=== PATIENT | female | born 1940 | race African-American/Black ===

== ENCOUNTER 2020-04-29 21:08 | Inpatient (IN) | payer MEDICARE, SELFPAY ==
--- NOTE | ~2020-04-29 | XR_ITS ---
XR chest 1V portable DATE: 04/29/2020 22:08 INDICATION: Shortness of breath TECHNIQUE: Portable AP chest on 04/30/2020 at 2210 hours COMPARISON: None FINDINGS: There is prominent elevation of the left leaf of the diaphragm. There are patchy bilateral pulmonary infiltrates; differential diagnosis includes pneumonia as well a s pulmonary edema. No pleural effusion is evident. Cardiomegaly. There is pulmonary vascular congesti on and redistribution. Aortic arch calcification. Prominent elevation of left leaf of diaphragm. Diffuse osteopenia. IMPRESSION: Cardiomegaly, pulmonary vascular congestion, bilateral pulmonary infiltrates. Differentia l diagnosis for the bilateral infiltrates includes pulmonary edema, pneumonia Reviewed, dictated and finalized at location A. IMPRESSION: Cardiomegaly, pulmonary vascular congestion, bilateral pulmonary in filtrates. Differential diagnosis for the bilateral infiltrates includes pulmon bibi edema, pneumonia
--- NOTE | ~2020-04-29 | XR_ITS ---
EXAMINATION: XR chest 1V portable DATE: 05/02/2020 09:20 INDICATION: Shortness of breath. TECHNIQUE: A single frontal view of the chest was obtained. COMPARISON: Chest single view 04/29/2020 FINDINGS: Again seen is elevation of left hemidiaphragm. There is mild atelectasis at left lung base. No pleural effusion or pneumothorax. The heart size is normal. IMPRESSION: 1. Persistent elevation of left hemidiaphragm with mild atelectasis at left lung base. Reviewed, dictated and finalized at location A. IMPRESSION: 1. Persistent elevation of left hemidiaphragm with mild atelectasis at left emilee g base.
--- NOTE | ~2020-04-29 | US_ITS ---
EXAMINATION: US renal BI DATE: 04/30/2020 10:11 INDICATION: Renal failure. TECHNIQUE: Multiple ultrasound grayscale images of the kidneys were obtained. COMPARISON: None. FINDINGS: The right kidney measures 10.2 x 5.1 x 4.0 cm. The left kidney measures 10.1 x 4.5 x 5.3 cm. The kidn eys demonstrate normal parenchymal echogenicity. There is no hydronephrosis. The bladder is decompres sed. IMPRESSION: 1. Normal kidneys. No hydronephrosis. Reviewed, dictated and finalized at location A.
[2020-04-29 21:08] VITALS: BP 98/52; PULSE 69; RESP 20; O2SAT 93
--- NOTE | 2020-04-29 21:28 | ECG_ITS ---
Measurements Intervals [place] Rate: 68 P: 104 DC: 149 QRS: 26 QRSD: 95 T: 10 QT: 395 QTc: 422 Interpretive Statements SINUS RHYTHM LOW QRS VOLTAGE IN PRECORDIAL LEADS BORDERLINE ECG Electronically Signed On 04-30-2020 7:10:40 CDT by Edd Echavarria D.O.
[2020-04-29 21:30] VITALS: PULSE 68; O2SAT 95
[2020-04-29 21:37] LABS: Alveolar/Arterial O2 Gradient 47.7 mmHg; Base Excess ABG -9.9 mEq/l (+/-2.0); Fractional Inspired Oxygen 21 %; HCO3 ABG 14.8 mEq/l (22.0-26.0); Modified Allen's Test Pass; Oxygen Content ABG 14.7 %vol (16.0-22.0); Oxygen Saturation ABG 92.2 % (95.0-100.0); Oxyhemoglobin 90.9 % THb (90.0-100.0); PCO2 ABG 29.3 mmHg (35.0-45.0); PO2 ABG 66.9 mmHg (80.0-100.0); PO2 FiO2 Ratio Arterial Blood 3.19 %; Site Drawn RIGHT RADIAL; Total Hemoglobin 11.5 g/dL (12.0-18.0); pH ABG 7.322 (7.350-7.450)
[2020-04-29 21:38] LABS: Device ROOM AIR
[2020-04-29 21:38] LABS: Basophils Absolute Auto 0.1 K/mm3 (0.0-0.1); Basophils Percent Auto 0.3 % (0.2-1.2); Eosinophils Absolute Auto 11.3 K/mm3 (0-0.3); Eosinophils Percent Auto 31.6 % (0-4.4); Hematocrit 32.9 % (37.0-47.0); Hemoglobin 10.4 g/dL (12.0-15.0); Immature Granulocyte Absolute 1.59 K/mm3 (0.00-0.031); Immature Granulocyte Percent A 4.4 % (0-0.5); Lymphocytes Percent Auto 11.5 % (18.3-44.2); Mean Corpuscular HGB Conc 31.6 g/dl (32-36); Mean Corpuscular Volume 91.6 fl (80-100); Mean Platelet Volume 11.7 fl (7.4-10.4); Monocytes Absolute Auto 4.2 K/mm3 (0.1-0.6); Monocytes Percent Auto 11.6 % (2.6-8.5); Neutrophils Absolute Auto 14.6 K/mm3 (1.3-6.7); Neutrophils Percent Auto 40.6 % (45.5-73.1); Nucleated Red Blood Cells Absolute Auto 0.4 K/mm3 (0.0-0.012); Nucleated Red Blood Cells Perc 1.2 % (0.0-0.2); Platelet Count Result 229 k/mm3 (150-375); Red Blood Count 3.59 M/mm3 (4.2-5.4); Red Cell Distribution Width 16.1 % (11.5-14.5); White Blood Count 35.8 K/mm3 (4.5-10.0)
[2020-04-29 21:47] LABS: INR 1.3
[2020-04-29 21:48] LABS: Burr Cells 1+ (NORMAL); Partial Thromboplastin Time 33.6 SECONDS (22.3-36.8); Platelet Estimate Adequate (Adequate); Polychromasia 1+ (NORMAL)
[2020-04-29 21:50] LABS: Lactic Acid Reflex 1.4 mmol/L (0.7-2.1)
[2020-04-29 21:51] LABS: Alanine Aminotransferase 92 U/L (4-35); Albumin Level 2.7 g/dL (3.5-5.1); Alkaline Phosphatase 127 U/L (38-126); Anion Gap 7 mmol/L (8-16); Aspartate Amino Transferase 65 U/L (14-36); Bilirubin,Total 0.5 mg/dL (0.2-1.3); Blood Urea Nitrogen 52 mg/dL (7-17); Calcium 8.4 mg/dL (8.4-10.2); Carbon Dioxide 20 mmol/L (22-30); Chloride 111 mmol/L (98-107); Estimated CRCL calculation 19 ml/min; Estimated Glomerular Filt Rate 15; Glucose 143 mg/dL (65-105); Magnesium 2.2 mg/dL (1.6-2.3); Potassium 3.9 mmol/L (3.4-5.0); Sodium 138 mmol/L (137-145)
[2020-04-29 22:03] LABS: NT Pro B Type Natriuretic Pept 6110 PG/ML (5-100); Troponin I 0.027 ng/mL (0.000-0.034)
--- NOTE | 2020-04-29 22:52 | ED.GENADULT ---
HPI - General Adult General Chief complaint: Shortness of Breath/Dyspnea Stated complaint: sob Time Seen by Provider: 04/29/20 21:18 History of Present Illness HPI narrative: Patient 79-year-old female who presents the emergency department chief complaint of shortness of breath. Patient reports she was recently admitted at [facility] and treated for urinary tract infection patient was discharged and noticed over the last several days she has been having increasing shortness of breath it is worse whenever she tries to ambulate and whenever she tries to lay flat. Patient reports she has had some swelling in her lower extremities reports that she does not know if she has any history of underlying lung problems. Related Data Home Medications Medication Instructions Recorded Confirmed allopurinol 04/29/20 amlodipine 04/29/20 atenolol 04/29/20 atorvastatin 04/29/20 cefdinir mg 04/29/20 furosemide 04/29/20 isosorbide mononitrate mg PO 04/29/20 losartan 04/29/20 metronidazole 04/29/20 triamcinolone acetonide TOPICAL 04/29/20 Review of Systems Review of Systems: Narrative: A 10 system review of systems was completed on the patient and is negative except for what is stated in the HPI. Nursing and ancillary documentation was reviewed. PMFSH Comments History of hypertension recent UTI Social history patient denies smoking or illicit drug use Exam Narrative: Exam Narrative: GENERAL: Well-appearing, well-nourished, and in no acute distress. HEAD: Normocephalic, atraumatic. EYES: PERRLA and EOMI. ENT: Nares clear, no rhinorrhea or epistaxis. Mucous membranes moist. NECK: Supple. CHEST: Clear to auscultation. No respiratory distress. HEART: Regular rate and rhythm. No murmur heard. Normal peripheral pulses. ABDOMEN: Soft, nontender, nondistended, normal active bowel sounds. EXTREMITIES: Normal range of motion. +2 edema. SKIN: Warm, dry, no rash. NEURO: No focal deficits. Alert and oriented x3. PSYCH: Normal mood and affect. Course Vital Signs Vital signs: Vital Signs Pulse Rate 69 04/29/20 21:08 Respiratory Rate 20 04/29/20 21:08 Blood Pressure 98/52 L 04/29/20 21:08 Pulse Oximetry 93 04/29/20 21:08 Pulse Rate 69 04/29/20 21:08 Respiratory Rate 20 04/29/20 21:08 Blood Pressure 98/52 L 04/29/20 21:08 Pulse Oximetry 93 04/29/20 21:08 Medical Decision Making Vital Signs Vital Signs: Vital Signs Pulse Rate 69 04/29/20 21:08 Respiratory Rate 20 04/29/20 21:08 Blood Pressure 98/52 L 04/29/20 21:08 Pulse Oximetry 93 04/29/20 21:08 Pulse Rate 69 04/29/20 21:08 Respiratory Rate 20 04/29/20 21:08 Blood Pressure 98/52 L 04/29/20 21:08 Pulse Oximetry 93 04/29/20 21:08 Lab Data Result diagrams: 04/29/20 21:32 04/29/20 21:32 Labs: Lab Results 04/29/20 04/29/20 04/29/20 Range/Units 21:32 21:32 21:32 WBC 35.8 H (4.5-10.0) K/mm3 RBC 3.59 L (4.2-5.4) M/mm3 Hgb 10.4 L (12.0-15.0) g/dL Hct 32.9 L (37.0-47.0) % MCV 91.6 (80-100) fl MCH 29.0 (26-34) pg MCHC 31.6 L (32-36) g/dl RDW 16.1 H (11.5-14.5) % Plt Count 229 (150-375) k/mm3 MPV 11.7 H (7.4-10.4) fl Immature Gran % (Auto) 4.4 H (0-0.5) % Neut % (Auto) 40.6 L (45.5-73.1) % Lymph % (Auto) 11.5 L (18.3-44.2) % [place] % (Auto) 11.6 H (2.6-8.5) % Eos % (Auto) 31.6 H (0-4.4) % Baso % (Auto) 0.3 (0.2-1.2) % Lymph # (Auto) 4.10 H (0.9-3.2) K/mm3 [place] # (Auto) 4.2 H (0.1-0.6) K/mm3 Eos # (Auto) 11.3 H (0-0.3) K/mm3 Baso # (Auto) 0.1 (0.0-0.1) K/mm3 Abs Immat Gran (auto) 1.59 H (0.00-0.031) K/mm3 Absolute Neuts (auto) 14.6 H (1.3-6.7) K/mm3 Absolute Nucleated RBC 0.4 H (0.0-0.012) K/mm3 Nucleated RBC % 1.2 H (0.0-0.2) % Platelet Estimate Adequate (Adequate) Polychromasia 1+ (NORMAL) Favio Cells 1+ (NORMAL) PT 17.0 H
[2020-04-29] MEDS: FUROSEMIDE INJ 40 MG/4 ML VIAL IV PUSH (23:00)
--- NOTE | 2020-04-29 23:28 | PC.NURSE ---
Pt placed on o2 at 2L/nc per order of Dr. Sharp. States that the patient c/o shortness of breath and pulse oximetry at 89%. Initial contact with patient, pt spo2 94-95% on room air. o2 connected at 2L/NC. Pt states that doctor told me to put some oxygen on . Stephanie RN made aware.
[2020-04-29 23:31] VITALS: BP 110/66; PULSE 66; RESP 19; O2SAT 98
[2020-04-30] VITALS (24 sets, daily range): BP systolic 92–130; BP diastolic 35–67; PULSE 67–84; RESP 16–23; TEMP 36.1–36.7; O2SAT 85–100; BMI 40.8; BMI 40.9
--- NOTE | 2020-04-30 00:20 | PC.NURSE ---
UNABLE TO OBTAIN BLOOD CULTURES AFTER 5 ATTEMPTS BY THIS RN, CLOUD INFRASTRUCTURE ARCHITECT AND PHLEBOTOMY. WILL HAVE MARI Sagastume ULTRASOUND RN ATTEMPT
[2020-04-30 01:05] LABS: Add Urine Microscopic? YES; Appearance Urine Cloudy (Clear); Bacteria Urine Trace /hpf; Bilirubin Urine 1+ (Negative); Blood Urine Negative (Negative); Color Urine Amber (Yellow); Glucose Urine UA 1+ mg/dL (Negative); Ketones Urine Trace mg/dL (Negative); Leukocyte Esterase Ur 2+ LEU/UL (Negative); Mucus Urine Rare /lpf; Nitrate Urine Negative (Negative); Protein Urine 2+ mg/dL (Negative); Specific Grav Ur 1.024 (1.001-1.035); Squamous Epithelial Cell Urine Few /hpf (Few); Urobilinogen Urine Negative mg/dL (<2.0); WBC Urine 21-30 /hpf
[2020-04-30] MEDS: ALBUTEROL SULFATE NEB 2.5 MG/0.5 ML INH 5 MG INHALATION ×4 (01:12→21:21)
[2020-04-30] MEDS: IPRATROPIUM BR 0.02% INH SOLN 0.5 MG/2.5 ML VIAL INHALATION ×4 (01:12→21:21)
--- NOTE | 2020-04-30 02:19 | ADMGEN ---
This patient, Lizbeth Yang, was admitted to IMU Room 203-01. Patient/family oriented to hospital policies and general routines including ID bracelet, bed and alarms, visiting hours, pain management, procedures, bathroom and other care routines, personal items, smoking policy, room service/diet, and visiting hours. Information on how to activate the Rapid Response Team has been discussed. Patient/Family are encouraged to report perceived risks to care and to ask questions if they do not understand what they are told or what they should do. Cat RN report arrived approx [id number]
--- NOTE | 2020-04-30 02:38 | PM.IMHP ---
H&P: HPI History of Present Illness Date/Time: 04/30/20 02:38 Chief Complaint: exertional shortness of breath Narrative: This is a 79-year-old female with known history of hypertension, hyperlipidemia, and arthritis who presented to the hospital with a complaint of shortness of breath. The patient was just discharged from [facility] were she was treated for a UTI as well as colitis according to the patient. She has had worsening exertional shortness of breath over the past few days and tonight she was found to be desaturating by EMS. The patient does not have any past medical history of chronic lung disease or congestive heart failure. She denies any history of coronary artery disease. On further questioning she also denies any recent fevers, chills, cough, sore throat, abdominal pain, dysuria, hematuria, nausea, vomiting, diarrhea, or worsening lower extremity swelling. The patient does admit to having mild chronic lower extremity swelling. The patient was found to be septic tonight in the emergency room with a respiratory rate in the 20s as well as a leukocytosis of 35,800. Chest x-ray was obtained in the emergency room which demonstrated bilateral pulmonary edema. The patient was treated with IV Lasix in the ER tonight. As well as empiric antibiotics for possible pneumonia. ABG was obtained which demonstrated hypoxemia. Urinalysis was obtained and was also abnormal. We been asked to admit the patient to hospital for further care. She has no other complaints at this time. Review of Systems Review of Systems: All systems reviewed & are unremarkable except as noted in HPI and below PMFSH Past Medical History Medical History (Updated 04/30/20 @ 02:55 by Ciro Sharp MD) Essential hypertension Hyperlipidemia Family History Family History (Updated 04/30/20 @ 02:10 by Bri Cloud RN) Sibling Asthma Social History Social History Smoking packs per day: 0.5 Smoking cigarettes per day: 10.0 Years smoked: 12 Smoking pack-years: 6.00 Smoking status: Former smoker Tobacco type: cigarettes Alcohol intake: never Substance use: never Substance use type: does not use Gender identity (if verbalized by the patient): Female Spiritual care concerns: No Comments Past surgical history is reviewed and unremarkable. Meds Home Medications and Allergies Home Medications Medication Instructions Recorded Confirmed Type allopurinol 100 mg PO DAILY 04/29/20 04/30/20 History amlodipine 10 mg PO DAILY 04/29/20 04/30/20 History atenolol 50 mg PO BID 04/29/20 04/30/20 History atorvastatin 40 mg PO DAILY 04/29/20 04/30/20 History cefdinir 300 mg PO BID 04/29/20 04/30/20 History furosemide 40 mg PO DAILY 04/29/20 04/30/20 History isosorbide mononitrate 60 mg PO DAILY 04/29/20 04/30/20 History losartan 100 mg PO DAILY 04/29/20 04/30/20 History metronidazole 500 mg PO TID 04/29/20 04/30/20 History triamcinolone acetonide 0.1 applic TOPICAL PRN PRN 04/29/20 04/30/20 History Allergies Allergy/AdvReac Type Severity Reaction Status Date / Time No Known Allergies Allergy Verified 04/29/20 23:15 Vital Signs Vital Signs - 24 hr 04/29/20 21:08 04/29/20 21:30 04/29/20 23:31 Temperature Pulse Rate 69 68 66 Respiratory Rate 20 19 Blood Pressure 98/52 L 110/66 Pulse Oximetry 93 95 98 04/30/20 00:36 04/30/20 01:05 04/30/20 01:10 Temperature Pulse Rate 72 69 67 Respiratory Rate 23 H 22 H 16 Blood Pressure 115/47 L 107/55 L 128/67 Pulse Oximetry 97 97 04/30/20 01:12 04/30/20 01:45 04/30/20 02:00 Temperature 36.4 C Pulse Rate 68 74 73 Respiratory Rate 20 23 H Blood Pressure 112/51 L Pulse Oximetry 97 Exam Const: General: cooperative, alert, awake and ill appearing chronically Nutritional Appearance: obese morbidly obese Orientation/consciousness: patient oriented x3 HENMT: Head: normal to inspection General nose exam: Normal external nose pre
[2020-04-30] MEDS: metroNIDAZOLE 250 MG TABLET 500 MG PO ×3 (05:16→20:32)
[2020-04-30 08:11] LABS: Thyroid Stimulating Hormone Reflex 0.651 uIU/mL (0.465-4.68)
[2020-04-30 08:51] LABS: Hematocrit 32.9 % (37.0-47.0); Hemoglobin 10.5 g/dL (12.0-15.0); Mean Corpuscular HGB Conc 31.9 g/dl (32-36); Mean Corpuscular Hemoglobin 29.4 pg (26-34); Mean Corpuscular Volume 92.2 fl (80-100); Mean Platelet Volume 12.4 fl (7.4-10.4); Platelet Count Result 190 k/mm3 (150-375); Red Blood Count 3.57 M/mm3 (4.2-5.4); Red Cell Distribution Width 16.3 % (11.5-14.5)
[2020-04-30] MEDS: ATORVASTATIN 40 MG TABLET PO (08:58)
[2020-04-30] MEDS: ENOXAPARIN 30 MG/0.3 ML SYRINGE SUB-Q (08:58)
[2020-04-30] MEDS: FUROSEMIDE INJ 40 MG/4 ML VIAL IV PUSH ×2 (08:58→20:32)
[2020-04-30 09:03] LABS: Anion Gap 7 mmol/L (8-16); Blood Urea Nitrogen 56 mg/dL (7-17); Calcium 8.3 mg/dL (8.4-10.2); Carbon Dioxide 20 mmol/L (22-30); Chloride 111 mmol/L (98-107); Estimated CRCL calculation 20 ml/min; Estimated Glomerular Filt Rate 18; Glucose 122 mg/dL (65-105); Potassium 4.6 mmol/L (3.4-5.0); Sodium 138 mmol/L (137-145)
--- NOTE | 2020-04-30 14:47 | PM.IMPN ---
Progress Note: A&P Assessment and Plan (1) Acute hypoxemic respiratory failure: Code(s): J96.01 - Acute respiratory failure with hypoxia Status: Acute Assessment and Plan: Appears to be secondary to acute heart failure exacerbation with pulmonary edema on chest x-ray and elevated BNP. The patient does appear to have peripheral edema. We will continue IV Lasix therapy. Monitor eyes and nose. Check TSH reflex T4. Sodium prudent fluid restricted diet. Check echocardiogram in a.m.. CHF teaching. Supplemental oxygen as needed. Continuous pulse oximetry. Bronchodilators as needed. RT assess and treat. 04/30/20 14:47 patient is 79-year-old female with significant cardiac or pulmonary history presented emergency department with a complaint of shortness of breath lower extremity edema chest x-ray showed cardiomegaly, pulmonary vascular congestion, bilateral pulmonary infiltrates. Differential diagnosis for the bilateral infiltrates includes pulmonary edema, pneumonia, most likely patient symptoms are secondary to exacerbation of congestive heart failure etiology uncertain cardiac echo is pending, is being diuresed with IV Lasix b.i.d. will continue to monitor, also upon arrival patient white counts elevated to 36,000 concerning sepsis with elevated white count and pneumonia as well as UTI, patient is being treated with Rocephin and azithromycin will continue to monitor, also patient BUN and creatinine is elevated 52/3.10 pre renal secondary dehydration patient is being diurese, patient renal ultrasound is normal, patient may be 3rd spacing. will closely monitor patient kidney function if there is no improvement will consult welder helper further recommendation. There is a suspicion patient may be positive for COVID-19 being tested an isolated. (2) Congestive heart failure: Qualifiers: Heart failure chronicity: acute Heart failure type: unspecified Qualified Code(s): I50.9 - Heart failure, unspecified Code(s): I50.9 - Heart failure, unspecified Status: Acute Assessment and Plan: Rule out acute congestive heart failure exacerbation with evidence of fluid overload. Monitor fluid status closely. Continue IV diuretics. Echocardiogram is pending. (3) Urinary tract infection: Qualifiers: Urinary tract infection type: site unspecified Hematuria presence: without hematuria Qualified Code(s): N39.0 - Urinary tract infection, site not specified Code(s): N39.0 - Urinary tract infection, site not specified Status: Acute Assessment and Plan: Continue antibiotics for same. Urine cultures pending. (4) Sepsis: Qualifiers: Sepsis type: sepsis due to unspecified organism Sepsis acute organ dysfunction status: with acute organ dysfunction Severe sepsis acute organ dysfunction type: acute respiratory failure Acute respiratory failure type: with hypoxia Severe sepsis shock status: without septic shock Qualified Code(s): A41.9 - Sepsis, unspecified organism; R65.20 - Severe sepsis without septic shock; J96.01 - Acute respiratory failure with hypoxia Code(s): A41.9 - Sepsis, unspecified organism Status: Acute Assessment and Plan: Source of sepsis appears to be urinary at this time. Will continue antibiotic therapy. Urine and blood cultures are pending. Check sputum culture. Monitor vital signs and urine output. (5) Transaminitis: Code(s): R74.01 - Elevation of levels of liver transaminase levels Status: Acute Assessment and Plan: Mild transaminitis may be secondary to fatty liver disease versus hypoperfusion from acute heart failure exacerbation. Monitor liver function test. Consider right upper quadrant ultrasound in outpatient setting. (6) Suspected 2019 novel coronavirus infection: Code(s): Z20.822 - Contact with and (suspected) exposure to COVID-19 Status: Acute Assessment and Plan: Patient
[2020-04-30] MEDS: ACETAMINOPHEN 325 MG TABLET 650 MG PO (17:01)
[2020-04-30 18:33] LABS: SARS-CoV-2 RNA PCR Negative
[2020-05-01] VITALS (25 sets, daily range): BP systolic 90–129; BP diastolic 47–87; PULSE 76–118; RESP 16–20; TEMP 35.8–36.9; O2SAT 93–99
[2020-05-01] MEDS: IPRATROPIUM BR 0.02% INH SOLN 0.5 MG/2.5 ML VIAL INHALATION ×4 (02:04→20:45)
[2020-05-01] MEDS: ALBUTEROL SULFATE NEB 2.5 MG/0.5 ML INH 5 MG INHALATION ×4 (02:05→20:44)
--- NOTE | 2020-05-01 02:56 | ECHO_ITS ---
Patient Info Name: Lizbeth Yang Age: 79 years : 1940 Gender: Female Ht: 68 in Wt: 269 lbs BSA: 2.48 m2 HR: 85 bpm BP: 90 / 52 mmHg Heart Rhythm: Atrial Fibrillation Technical Quality: Good Exam Date: 05/01/2020 2:41 PM Exam Location: [facility] Patient Status: Inpatient Admit Date: 04/29/2020 Staff Ordering Physician: Ciro Sharp MD Dairy Husbandry Worker: Rudolph Dillon RDCS, RT Attending Provider: Ciro Sharp MD Referring Physician: Lila ARCHER; Exam Type: CA echo doppler color flow Study Info Indications I50.9 - Heart failure, unspecified Complete two-dimensional, color flow and Doppler transthoracic echocardiogram is performed. Summary 1. Complete two-dimensional, color flow and Doppler transthoracic echocardiogram is performed. 2. Left ventricular systolic function is hyperdynamic, estimated at >70%. 3. There is mildly increased left ventricular wall thickness. 4. Right atrial chamber dimension is mildly enlarged. 5. There is no aortic valve stenosis. 6. There is trace mitral valve regurgitation. 7. Unable to estimate PA systolic pressure due to poor spectral resolution of tricuspid regurgitant jet velocity. Left Ventricle Left ventricular chamber dimension is normal. Left ventricular systolic function is hyperdynamic, estimated at >70%. There is mildly increased left ventricular wall thickness. The left ventricular diastolic function is indeterminate. Right Ventricle Right ventricular chamber dimension is normal. Right ventricular systolic function is normal. Left Atria Left atrial chamber dimension is normal. Right Atria Right atrial chamber dimension is mildly enlarged. Aortic Valve The aortic valve is not well visualized. There is no aortic valve stenosis. There is no aortic valve regurgitation. There is mild aortic valve calcification. Pulmonic Valve The pulmonic valve is not well visualized. Mitral Valve The mitral valve has normal leaflets. There is trace mitral valve regurgitation. The mitral valve annulus is moderately calcified. Tricuspid Valve The tricuspid valve leaflets are normal. There is trace tricuspid valve regurgitation. Unable to estimate PA systolic pressure due to poor spectral resolution of tricuspid regurgitant jet velocity. Pericardium/Pleural The pericardium appears normal. There is trivial pericardial effusion. Inferior Vena Cava Normal inferior vena cava with >50% collapse upon inspiration consistent with normal right atrial pressure, 5 mmHg. Aorta The aortic root size at the sinus of Valsalva is normal. There is mild aortic atherosclerosis. Left Ventricular Outflow Tract Name Value Normal LVOT 2D LVOT Diameter 2.1 cm LVOT Doppler LVOT Peak Gradient 7 mmHg LVOT Mean Gradient 3 mmHg LVOT VTI 18 cm LVOT VTI/AV VTI Ratio 0.7 LVOT Stroke Volume 63 ml LVOT CO 7.9 l/min LVOT CI 3.2 l/min/m2 M
[2020-05-01] MEDS: metroNIDAZOLE 250 MG TABLET 500 MG PO ×2 (06:30→14:16)
[2020-05-01] MEDS: ENOXAPARIN 30 MG/0.3 ML SYRINGE SUB-Q (08:15)
[2020-05-01] MEDS: FUROSEMIDE INJ 40 MG/4 ML VIAL IV PUSH ×2 (08:16→20:39)
[2020-05-01] MEDS: ATORVASTATIN 40 MG TABLET PO (08:16)
[2020-05-01 08:32] LABS: Hematocrit 35.5 % (37.0-47.0); Mean Corpuscular Hemoglobin 28.8 pg (26-34); Mean Corpuscular Volume 92.9 fl (80-100); Mean Platelet Volume 11.6 fl (7.4-10.4); Platelet Count Result 201 k/mm3 (150-375); Red Blood Count 3.82 M/mm3 (4.2-5.4); White Blood Count 38.6 K/mm3 (4.5-10.0)
[2020-05-01 08:44] LABS: Albumin Level 2.7 g/dL (3.5-5.1); Anion Gap 6 mmol/L (8-16); Blood Urea Nitrogen 59 mg/dL (7-17); Calcium 8.3 mg/dL (8.4-10.2); Carbon Dioxide 22 mmol/L (22-30); Chloride 109 mmol/L (98-107); Estimated CRCL calculation 20 ml/min; Estimated Glomerular Filt Rate 19; Glucose 96 mg/dL (65-105); Phosphorus 2.8 mg/dL (2.5-4.5); Potassium 4.6 mmol/L (3.4-5.0); Sodium 137 mmol/L (137-145)
[2020-05-01 09:10] LABS: Band Neutrophils Percent 3 % (0-6); Eosinophils Absolute Manual 17.37 K/mm3 (0.02-0.5); Eosinophils Percent Manual 45 % (0-4); Lymphocytes Absolute Manual 7.72 K/mm3 (1.1-4.5); Monocytes Absolute Manual 0.38 K/mm3 (0.1-0.90); Monocytes Percent Manual 1 % (3-9); Neutrophils Absolute Manual 13.12 K/mm3 (1.7-7.2); Neutrophils Percent Manual 31 % (46-73); Nucleated Red Blood Cells 1 %; Total Cells Counted 100
[2020-05-01 09:11] LABS: Anisocytosis 1+ (NORMAL); Platelet Estimate Adequate (Adequate)
[2020-05-01 09:12] LABS: Ovalocytes 1+ (NORMAL); Polychromasia 1+ (NORMAL); Smudge Cells MODERATE
--- NOTE | 2020-05-01 13:06 | PM.IMPN ---
Progress Note: A&P Assessment and Plan (1) Acute hypoxemic respiratory failure: Code(s): J96.01 - Acute respiratory failure with hypoxia Status: Acute Assessment and Plan: Appears to be secondary to acute heart failure exacerbation with pulmonary edema on chest x-ray and elevated BNP. The patient does appear to have peripheral edema. We will continue IV Lasix therapy. Monitor eyes and nose. Check TSH reflex T4. Sodium prudent fluid restricted diet. Check echocardiogram in a.m.. CHF teaching. Supplemental oxygen as needed. Continuous pulse oximetry. Bronchodilators as needed. RT assess and treat. 05/01/20 13:07 04/30 patient is 79-year-old female with significant cardiac or pulmonary history presented emergency department with a complaint of shortness of breath lower extremity edema chest x-ray showed cardiomegaly, pulmonary vascular congestion, bilateral pulmonary infiltrates. Differential diagnosis for the bilateral infiltrates includes pulmonary edema, pneumonia, most likely patient symptoms are secondary to exacerbation of congestive heart failure etiology uncertain cardiac echo is pending, is being diuresed with IV Lasix b.i.d. will continue to monitor, also upon arrival patient white counts elevated to 36,000 concerning sepsis with elevated white count and pneumonia as well as UTI, patient is being treated with Rocephin and azithromycin will continue to monitor, also patient BUN and creatinine is elevated 52/3.10 pre renal secondary dehydration patient is being diurese, patient renal ultrasound is normal, patient may be 3rd spacing. will closely monitor patient kidney function if there is no improvement will consult film crew member further recommendation. There is a suspicion patient may be positive for COVID-19 being tested an isolated. 05/01 patient COVID test is negative and off isolation, today patient states feeling little better not as short of breath however patient urine output is poor a kidney function is not improving, will consult Nephrology for further recommendation, cardiac echo is pending White counts remain elevated urine and blood cultures are pending, most likely secondary to pneumonia patient is being treated with Rocephin azithromycin will continue to monitor, will have a PT OT evaluate the patient and further recommendation to follow (2) Congestive heart failure: Qualifiers: Heart failure chronicity: acute Heart failure type: unspecified Qualified Code(s): I50.9 - Heart failure, unspecified Code(s): I50.9 - Heart failure, unspecified Status: Acute Assessment and Plan: Rule out acute congestive heart failure exacerbation with evidence of fluid overload. Monitor fluid status closely. Continue IV diuretics. Echocardiogram is pending. (3) Urinary tract infection: Qualifiers: Urinary tract infection type: site unspecified Hematuria presence: without hematuria Qualified Code(s): N39.0 - Urinary tract infection, site not specified Code(s): N39.0 - Urinary tract infection, site not specified Status: Acute Assessment and Plan: Continue antibiotics for same. Urine cultures pending. (4) Sepsis: Qualifiers: Sepsis type: sepsis due to unspecified organism Sepsis acute organ dysfunction status: with acute organ dysfunction Severe sepsis acute organ dysfunction type: acute respiratory failure Acute respiratory failure type: with hypoxia Severe sepsis shock status: without septic shock Qualified Code(s): A41.9 - Sepsis, unspecified organism; R65.20 - Severe sepsis without septic shock; J96.01 - Acute respiratory failure with hypoxia Code(s): A41.9 - Sepsis, unspecified organism Status: Acute Assessment and Plan: Source of sepsis appears to be urinary at this time. Will continue antibiotic therapy. Urine and blood cultures are pending. Check sputum culture. Monitor vital signs and urine output. (5) Tr
--- NOTE | 2020-05-01 15:58 | ECG_ITS ---
Measurements Intervals [place] Rate: 122 P: NM: 0 QRS: 18 QRSD: 88 T: -5 QT: 300 QTc: 428 Interpretive Statements ATRIAL FIBRILLATION WITH RAPID VENTRICULAR RESPONSE ABNORMAL ECG Electronically Signed On 05-01-2020 20:12:44 CDT by Edd Echavarria D.O.
[2020-05-01] MEDS: METOPROLOL TARTRATE INJ 5 MG/5 ML VIAL IV PUSH (16:51)
--- NOTE | 2020-05-01 17:25 | PM.PNNEP ---
Subjective Date/time seen: 05/01/20 17:25 Interval history: Lizbeth is a very pleasant 79-year-old lady who has multiple medical problems including hypertension, arthritis, hyperlipidemia. The patient was recently in [facility] in [facility] for shortness of breath. She was treated and discharged. In over the next few days after discharge he became short of breath again so came over to the emergency room at [facility] and was admitted. Chest x-ray showed fluid and possible pneumonia. She has been given diuretics and antibiotics. She says she feels better now. Her creatinine was at elevated on admission and has not improved so renal consultation was requested. She denies any bloody urine, foamy urine, kidney stones, or painful urination. She does not take any nonsteroidal anti-inflammatory agents. She does not see a kidney doctor as an outpatient. She has not had any changes in her medication at home but she is not what sure what she got in [facility]. Upon admission she was diagnosed with acute respiratory failure. This is felt to have a component of volume overload and possible congestive heart failure. She also had evidence of pneumonia so she was given antibiotics. She also had a bladder infection and was given antibiotics for this as well. Review of Systems Cardiovascular: Cardiovascular: Reports no additional cardiovascular complaints Respiratory: Respiratory: Reports no additional respiratory complaints Gastrointestinal: Gastrointestinal: Reports no additional gastrointestinal complaints Genitourinary: Genitourinary: Reports no additional female genitourinary complaints Exam Narrative: Exam Narrative: WDWN in NAD skin no rash head ncat lungs clear cor reg no rub abd BS+ nontender and soft ext no edema. Objective Data Vital Signs Vital Signs: Vital Signs - 24 hr 04/30/20 18:00 04/30/20 18:53 04/30/20 20:00 Temperature 36.5 C Pulse Rate 74 73 71 Respiratory Rate 20 Blood Pressure 97/35 L Pulse Oximetry 97 94 04/30/20 21:21 04/30/20 21:30 04/30/20 22:00 Temperature Pulse Rate 67 69 73 Respiratory Rate 20 20 Blood Pressure Pulse Oximetry 05/01/20 00:00 05/01/20 02:00 05/01/20 02:06 Temperature 36.6 C Pulse Rate 78 82 78 Respiratory Rate 18 18 Blood Pressure 98/47 L Pulse Oximetry 93 05/01/20 02:16 05/01/20 04:00 05/01/20 06:00 Temperature 36.9 C Pulse Rate 80 85 84 Respiratory Rate 18 18 Blood Pressure 129/71 Pulse Oximetry 96 05/01/20 07:54 05/01/20 08:00 05/01/20 08:53 Temperature 36.6 C Pulse Rate 81 81 80 Respiratory Rate 18 18 18 Blood Pressure 124/53 L Pulse Oximetry 95 95 05/01/20 09:01 05/01/20 10:00 05/01/20 12:00 Temperature 36.7 C Pulse Rate 80 83 87 Respiratory Rate 18 18 Blood Pressure 90/52 L Pulse Oximetry 99 05/01/20 13:54 05/01/20 14:00 05/01/20 14:07 Temperature Pulse Rate 84 88 84 Respiratory Rate 18 18 Blood Pressure Pulse Oximetry 05/01/20 16:00 05/01/20 16:51 Temperature 36.6 C Pulse Rate 118 H 112 H Respiratory Rate 20 Blood Pressure 126/87 Pulse Oximetry 93 Intake/Output Intake/Output: Intake & Output 04/28/20 04/29/20 04/30/20 05/01/20 23:59 23:59 23:59 23:59 Intake Total 50 300 Output Total 100 150 Balance -100 -100 300 Meds/Results Medications: Active Medications Generic Name Dose Route Start Last Admin Trade Name Jessi PRN Reason Stop Dose Admin Acetaminophen 650 mg 04/29/20 22:50 04/30/20 17:01 Acetaminophen 325 Mg Tablet PO 650 mg Q4H PRN Administration Mild Pain (1-3) or Fever Albuterol 5 mg 04/30/20 02:00 05/01/20 13:53 Albuterol Sulfate Neb 2.5 Mg/0.5 Ml Inh INHALATION 5 mg Q6HRT JASON Administration Allopurinol 100 mg 05/02/20 09:00 Allopurinol 100 Mg Tablet PO DAILY [facility] Amlodipine Besylate 10 mg 05/02/20 09:00 Amlodipine Besylate 5 Mg Table
--- NOTE | 2020-05-01 17:32 | PM.CNNEP ---
Assessment and Plan Assessment and plan (1) Acute renal failure: Qualifiers: Acute renal failure type: unspecified Qualified Code(s): N17.9 - Acute kidney failure, unspecified Code(s): N17.9 - Acute kidney failure, unspecified Status: Acute Assessment and Plan: Lizbeth has acute kidney injury. It is unclear if she has underlying chronic disease or not. Her renal ultrasound shows normal kidneys. She does not see a kidney doctor as an outpatient and has never been told she had kidney problems, all of which speak against her having CKD. She does have chronic hypertension however and hyperlipidemia so is at risk for at least some chronic kidney disease. Acute kidney injury can be caused by pneumonia. She is getting antibiotics for this. She also had a bladder infection and signs of sepsis so could have injury of of the kidneys because of these. Her white cell count is still high. Her blood pressure was somewhat low last night and she could have some dysautoregulation. we will get urine electrolytes and eosinophils. I will back off on her blood pressure meds to let her blood pressure run between 120 and 140. We will follow along. (2) Metabolic acidosis: Code(s): E87.2 - Acidosis Status: Acute Assessment and Plan: Her bicarbonate level is a little bit better. She is getting diuretics would which would tend to make this CO2 rise so I will not give her bicarbonate supplements currently. (3) Acute hypoxemic respiratory failure: Code(s): J96.01 - Acute respiratory failure with hypoxia Status: Acute Assessment and Plan: The patient has volume overload on her chest x-ray. She is getting diuretics for this and feels better. Her echocardiogram does not look all that bad. So it does not look like she has primary congestive heart failure. She possibly could have pneumonia as well. She is getting antibiotics for this. (4) Urinary tract infection: Qualifiers: Hematuria presence: without hematuria Urinary tract infection type: site unspecified Qualified Code(s): N39.0 - Urinary tract infection, site not specified Code(s): N39.0 - Urinary tract infection, site not specified Status: Acute Assessment and Plan: Her urinalysis showed a few red cells and a few white cells. Culture is negative. She was on cefdinir on admission which would explain the negative culture. (5) Essential hypertension: Code(s): I10 - Essential (primary) hypertension Status: Chronic Assessment and Plan: Blood pressure is doing pretty well, a bit low last night. Back off on antihypertensives. (6) Hyperlipidemia: Qualifiers: Hyperlipidemia type: unspecified Qualified Code(s): E78.5 - Hyperlipidemia, unspecified Code(s): E78.5 - Hyperlipidemia, unspecified Status: Chronic Assessment and Plan: She is on atorvastatin. History of Present Illness Reason for Consult Consult date: 05/01/20 Chief Complaint Chief complaint: pneumonia, chf, leukocytosis History of Present Illness Narrative: Lizbeth is a very pleasant 79-year-old lady who has multiple medical problems including hypertension, arthritis, hyperlipidemia. The patient was recently in [facility] in [facility] for shortness of breath. She was treated and discharged. In over the next few days after discharge he became short of breath again so came over to the emergency room at [facility] and was admitted. Chest x-ray showed fluid and possible pneumonia. She has been given diuretics and antibiotics. She says she feels better now. Her creatinine was at elevated on admission and has not improved so renal consultation was requested. She denies any bloody urine, foamy urine, kidney stones, or painful urination. She does not take any nonsteroidal anti-inflammatory agents. She does not see a kidney doctor
[2020-05-01] MEDS: atenoloL 50 MG TABLET PO (17:37)
[2020-05-01 18:25] LABS: Creatine Kinase 373 U/L (30-135)
[2020-05-01] MEDS: ACETAMINOPHEN 325 MG TABLET 650 MG PO (20:39)
[2020-05-02] VITALS (27 sets, daily range): BP systolic 72–115; BP diastolic 38–53; PULSE 92–130; RESP 18–24; TEMP 36.2–36.9; O2SAT 82–97
[2020-05-02 00:26] LABS: Creatinine Urine 246.7 mg/dL; Total Protein Urine Random 51 mg/dL; Ur Ttl Prot Creatinine Ratio 0.21 mg/mg (0-0.20)
[2020-05-02 00:58] LABS: Sodium Urine Random 16 meq/L
[2020-05-02] MEDS: ALBUTEROL SULFATE NEB 2.5 MG/0.5 ML INH 5 MG INHALATION ×4 (01:29→20:15)
[2020-05-02] MEDS: IPRATROPIUM BR 0.02% INH SOLN 0.5 MG/2.5 ML VIAL INHALATION ×4 (01:29→20:15)
[2020-05-02 06:26] LABS: Hematocrit 36.6 % (37.0-47.0); Hemoglobin 11.3 g/dL (12.0-15.0); Mean Corpuscular HGB Conc 30.9 g/dl (32-36); Mean Corpuscular Hemoglobin 29.1 pg (26-34); Mean Corpuscular Volume 94.3 fl (80-100); Mean Platelet Volume 11.7 fl (7.4-10.4); Platelet Count Result 183 k/mm3 (150-375); Red Blood Count 3.88 M/mm3 (4.2-5.4); Red Cell Distribution Width 17.7 % (11.5-14.5); White Blood Count 38.4 K/mm3 (4.5-10.0)
[2020-05-02 06:30] LABS: Albumin Level 2.4 g/dL (3.5-5.1); Anion Gap 7 mmol/L (8-16); Blood Urea Nitrogen 64 mg/dL (7-17); Carbon Dioxide 20 mmol/L (22-30); Chloride 109 mmol/L (98-107); Estimated CRCL calculation 20 ml/min; Estimated Glomerular Filt Rate 19; Glucose 95 mg/dL (65-105); Phosphorus 3.1 mg/dL (2.5-4.5); Potassium 4.6 mmol/L (3.4-5.0); Sodium 136 mmol/L (137-145)
[2020-05-02 06:41] LABS: Eosinophil Urine None Seen % (None Seen)
[2020-05-02] MEDS: atenoloL 50 MG TABLET PO (09:30)
[2020-05-02] MEDS: allopurinoL 100 MG TABLET PO (09:30)
[2020-05-02] MEDS: ATORVASTATIN 40 MG TABLET PO (09:30)
[2020-05-02] MEDS: ENOXAPARIN 30 MG/0.3 ML SYRINGE SUB-Q (09:30)
[2020-05-02] MEDS: ISOSORBIDE MONONITRATE 60 MG TAB.ER.24H PO (09:31)
[2020-05-02] MEDS: LOSARTAN POTASSIUM 100 MG TABLET PO (09:31)
[2020-05-02] MEDS: FUROSEMIDE INJ 40 MG/4 ML VIAL IV PUSH (09:31)
--- NOTE | 2020-05-02 11:59 | PM.PNNEP ---
Progress Note: A&P Assessment and Plan (1) Acute renal failure: Qualifiers: Acute renal failure type: unspecified Qualified Code(s): N17.9 - Acute kidney failure, unspecified Code(s): N17.9 - Acute kidney failure, unspecified Status: Acute Assessment and Plan: Lizbeth has an elevated creatinine. She says she has never been told of kidney disease in the past and her ultrasound is okay so I am assuming this is acute kidney injury. It is unclear if she has underlying chronic disease or not. Her renal ultrasound shows normal kidneys. Urinalysis shows protein plus some white cells. Urine culture is negative urine protein is around 200milligrams/gram of creatinine urine electrolytes look pre renal. The patient may be a bit dehydrated and also the blood pressure may be leading to the pre renal state. She could have a component of ATN from her pneumonia. She is on antibiotics for this. (2) Metabolic acidosis: Code(s): E87.2 - Acidosis Status: Acute Assessment and Plan: CO2 is about the same (3) Acute hypoxemic respiratory failure: Code(s): J96.01 - Acute respiratory failure with hypoxia Status: Acute Assessment and Plan: The patient has volume overload on her chest x-ray. She is getting diuretics for this and feels better. Her echocardiogram does not look all that bad. So it does not look like she has primary congestive heart failure. She possibly could have pneumonia and a UTI as well. She is getting antibiotics for this. is unclear why she has volume overload on chest x-ray, a normal heart, yet she has pre renal azotemia. It would fit better if she just had chronic kidney disease and she were at baseline. (4) Urinary tract infection: Qualifiers: Urinary tract infection type: site unspecified Hematuria presence: without hematuria Qualified Code(s): N39.0 - Urinary tract infection, site not specified Code(s): N39.0 - Urinary tract infection, site not specified Status: Acute Assessment and Plan: Her urinalysis showed a few red cells and a few white cells. Culture is negative. She was on cefdinir on admission which would explain the negative culture. (5) Essential hypertension: Code(s): I10 - Essential (primary) hypertension Status: Chronic Assessment and Plan: Blood pressure is doing pretty well, a bit low last night. Back off on antihypertensives. (6) Hyperlipidemia: Qualifiers: Hyperlipidemia type: unspecified Qualified Code(s): E78.5 - Hyperlipidemia, unspecified Code(s): E78.5 - Hyperlipidemia, unspecified Status: Chronic Assessment and Plan: She is on atorvastatin. Subjective Date/time seen: 05/02/20 11:59 Interval history: Lizbeth is feeling about the same. May be a little short of breath she says. She is in no distress. Review of Systems Cardiovascular: Cardiovascular: Reports no additional cardiovascular complaints Respiratory: Respiratory: Reports no additional respiratory complaints Gastrointestinal: Gastrointestinal: Reports no additional gastrointestinal complaints Genitourinary: Genitourinary: Reports no additional female genitourinary complaints Exam Narrative: Exam Narrative: WDWN in NAD skin no rash head ncat lungs clear Bilaterally cor reg no rub abd BS+ nontender and soft ext no edema. Objective Data Vital Signs Vital Signs: Vital Signs - 24 hr 05/01/20 12:00 05/01/20 13:54 05/01/20 14:00 Temperature 36.7 C Pulse Rate 87 84 88 Respiratory Rate 18 18 Blood Pressure 90/52 L Pulse Oximetry 99 05/01/20 14:07 05/01/20 16:00 05/01/20 16:51 Temperature 36.6 C Pulse Rate 84 115 H 112 H Respiratory Rate 18 20 Blood Pressure 126/87 Pulse Oximetry 93 05/01/20 17:37 05/01/20 17:58 05/01/20 20:00 Temperature 35.8 C L Pulse Rate 111 H 112 H 110 H Res
--- NOTE | 2020-05-02 15:16 | PM.IMPN ---
Progress Note: A&P Assessment and Plan (1) Acute hypoxemic respiratory failure: Code(s): J96.01 - Acute respiratory failure with hypoxia Status: Acute Assessment and Plan: Appears to be secondary to acute heart failure exacerbation with pulmonary edema on chest x-ray and elevated BNP. The patient does appear to have peripheral edema. We will continue IV Lasix therapy. Monitor eyes and nose. Check TSH reflex T4. Sodium prudent fluid restricted diet. Check echocardiogram in a.m.. CHF teaching. Supplemental oxygen as needed. Continuous pulse oximetry. Bronchodilators as needed. RT assess and treat. 05/02/20 15:16 04/30 patient is 79-year-old female with significant cardiac or pulmonary history presented emergency department with a complaint of shortness of breath lower extremity edema chest x-ray showed cardiomegaly, pulmonary vascular congestion, bilateral pulmonary infiltrates. Differential diagnosis for the bilateral infiltrates includes pulmonary edema, pneumonia, most likely patient symptoms are secondary to exacerbation of congestive heart failure etiology uncertain cardiac echo is pending, is being diuresed with IV Lasix b.i.d. will continue to monitor, also upon arrival patient white counts elevated to 36,000 concerning sepsis with elevated white count and pneumonia as well as UTI, patient is being treated with Rocephin and azithromycin will continue to monitor, also patient BUN and creatinine is elevated 52/3.10 pre renal secondary dehydration patient is being diurese, patient renal ultrasound is normal, patient may be 3rd spacing. will closely monitor patient kidney function if there is no improvement will consult building services coordinator further recommendation. There is a suspicion patient may be positive for COVID-19 being tested an isolated. 05/01 patient COVID test is negative and off isolation, today patient states feeling little better not as short of breath however patient urine output is poor a kidney function is not improving, will consult Nephrology for further recommendation, cardiac echo is pending White counts remain elevated urine and blood cultures are pending, most likely secondary to pneumonia patient is being treated with Rocephin azithromycin will continue to monitor, will have a PT OT evaluate the patient and further recommendation to follow. 05/02, today patient stats she is feeling better requiring 1L NC, chest does not any pneumonia, her urine does show white counts, but urine and blood culture are pending patient being treated with Rocephin and Zithromax, her white counts are improving but still quite elevated unable to attribute to source of infection, will consult veneer clipper for recommendation, patient creatinine is remain elevated seen by Dr. Elkins and work up is in progress patient being diuresed will continue to monitor. patient to participate in PT/OT and further recommendation. (2) Congestive heart failure: Qualifiers: Heart failure chronicity: acute Heart failure type: unspecified Qualified Code(s): I50.9 - Heart failure, unspecified Code(s): I50.9 - Heart failure, unspecified Status: Acute Assessment and Plan: Rule out acute congestive heart failure exacerbation with evidence of fluid overload. Monitor fluid status closely. Continue IV diuretics. Echocardiogram is pending. (3) Urinary tract infection: Qualifiers: Urinary tract infection type: site unspecified Hematuria presence: without hematuria Qualified Code(s): N39.0 - Urinary tract infection, site not specified Code(s): N39.0 - Urinary tract infection, site not specified Status: Acute Assessment and Plan: Continue antibiotics for same. Urine cultures pending. (4) Sepsis: Qualifiers: Sepsis type: sepsis due to unspecified organism Sepsis acute organ dysfunction status: with acute organ dysfunction Severe sepsis acute organ dysfunction type: acute
[2020-05-02] MEDS: SODIUM CHLORIDE 0.9% IV 250 ML IV CONT ×2 (17:22→19:21)
[2020-05-02] MEDS: SODIUM CHLORIDE 0.9% IV 500 ML IV CONT (23:30)
[2020-05-03] VITALS (30 sets, daily range): BP systolic 72–106; BP diastolic 39–58; PULSE 97–121; RESP 20–24; TEMP 35.7–36.7; O2SAT 88–99; BMI 10.0
[2020-05-03] MEDS: ALBUTEROL SULFATE NEB 2.5 MG/0.5 ML INH 5 MG INHALATION ×4 (01:46→20:25)
[2020-05-03] MEDS: IPRATROPIUM BR 0.02% INH SOLN 0.5 MG/2.5 ML VIAL INHALATION ×4 (01:46→20:20)
[2020-05-03] MEDS: SODIUM CHLORIDE 0.9% IV 500 ML IV CONT (03:07)
[2020-05-03 05:25] LABS: Hematocrit 30.6 % (37.0-47.0); Hemoglobin 9.5 g/dL (12.0-15.0); Mean Corpuscular Hemoglobin 28.9 pg (26-34); Mean Platelet Volume 12.1 fl (7.4-10.4); Platelet Count Result 191 k/mm3 (150-375); Red Blood Count 3.29 M/mm3 (4.2-5.4); Red Cell Distribution Width 18.1 % (11.5-14.5)
[2020-05-03 05:41] LABS: Alanine Aminotransferase 98 U/L (4-35); Albumin Level 2.2 g/dL (3.5-5.1); Alkaline Phosphatase 162 U/L (38-126); Anion Gap 8 mmol/L (8-16); Aspartate Amino Transferase 143 U/L (14-36); Bilirubin,Total 0.5 mg/dL (0.2-1.3); Blood Urea Nitrogen 70 mg/dL (7-17); Calcium 7.5 mg/dL (8.4-10.2); Carbon Dioxide 18 mmol/L (22-30); Chloride 111 mmol/L (98-107); Estimated CRCL calculation 17 ml/min; Estimated Glomerular Filt Rate 15; Glucose 128 mg/dL (65-105); Potassium 3.7 mmol/L (3.4-5.0); Sodium 137 mmol/L (137-145)
[2020-05-03] MEDS: SODIUM CHLORIDE 0.9% IV 1,000 ML 100 ML IV CONT ×2 (06:35→15:43)
[2020-05-03] MEDS: ENOXAPARIN 30 MG/0.3 ML SYRINGE SUB-Q (08:40)
[2020-05-03] MEDS: allopurinoL 100 MG TABLET PO (08:40)
[2020-05-03] MEDS: ATORVASTATIN 40 MG TABLET PO (08:40)
--- NOTE | 2020-05-03 12:54 | PCDIET ---
Nutrition Follow-Up Complete: Nutrition Diagnosis: Suboptimal oral intake related to decreased appetite as evidenced by patient reporting limited intake x 3 weeks prior to admission with weight loss of uncertain amount. Nutrition Goal: Patient to consume 50% of meals/supplements or greater. Goal not met. Patient refusing meals, per nurse aid. Difficulty obtaining information from patient, but patient did c/o diarrhea. Generally 1 BM/day documented. Patient with Ensure Compact on tray. Clarified order with dietary, as patient states willing to try Frozen Nutritional Treat BID. Last recorded weight is 122 kg which is down from last review. +I/O. Bowel Motility: +BM x 1 today. Labs Reviewed: Hgb (9.5), Hct (30.6), BUN (70), Cr (3.5), Alb (2.2), Cl (111), Monica Ca (8.94) Meds Noted: Albuterol, Rocephin, Cozaar, Lipitor, Lasix, NS at 100mL/hr, Zithromax, Atrovent Additional Notes: No documented skin breakdown. If intakes do not improve substantially over the next few days, would consider nutrition support. Will follow closely with same goal. Nutrition Monitoring and Evaluation: Follow up in 3 days.
[2020-05-03] MEDS: ACETAMINOPHEN 325 MG TABLET 650 MG PO ×2 (15:45→20:12)
--- NOTE | 2020-05-03 16:22 | PDONCCN ---
HPI - Date of Consult Date/Time: 05/03/20 16:22 Requesting Physician: Ciro Sharp MD Primary Care Provider: Seth Puente, - Consult Narrative Reason for consult: Leukocytosis and anemia. Narrative: Lizbeth Yang is a 79 year old female with history of hypertension arthritis and hyperlipidemia came into the hospital with increasing shortness of breath. Was recently discharged from the hospital after being treated for UTI in colitis. She is complain of diarrhea going on for almost a week duration. She denies any fevers and chills. Denies any sore throat. No abdominal pain. No new lung sounds are lymphadenopathy. Denies any weight loss. She was found to be septic and CBC showed elevated WBC count. Chest x-ray showed bilateral pulmonary edema. She denies any previous history of leukemia lymphoma. Labs also showed anemia with elevated eosinophils of 45% with total WBC of 38.6. She denies any rash. Review of Systems - Review of Systems All systems reviewed & are unremarkable except as noted in HPI and bel - Neurologic Reports system reviewed and no additional complaints, except as documented PMF Medical History: Medical History (Last Reviewed 05/01/20 @ 17:33 by Tal Elkins MD) Essential hypertension Hyperlipidemia Family History: Family History (Last Reviewed 05/01/20 @ 17:33 by Tal Elkins MD) Sibling Asthma - Social History Social History: Social History (Last Reviewed 05/01/20 @ 17:33 by Tal Elkins MD) Gender Identity: Gender identity (if verbalized by the patient): Female Alcohol Use: Alcohol intake: never Substance Use: Substance use: never Substance use type: does not use Others: Spiritual care concerns: No Smoking Status: Smoking status: Former smoker Tobacco type: cigarettes Approximate Smoking End Date: 1984 Smoking Pack-years: Smoking packs per day: 0.5 Smoking cigarettes per day: 10.0 Years smoked: 12 Smoking pack-years: 6.00 Meds Home Medications Medication Instructions Recorded Confirmed Type allopurinol 100 mg PO DAILY 04/29/20 04/30/20 History amlodipine 10 mg PO DAILY 04/29/20 04/30/20 History atenolol 50 mg PO BID 04/29/20 04/30/20 History atorvastatin 40 mg PO DAILY 04/29/20 04/30/20 History cefdinir 300 mg PO BID 04/29/20 04/30/20 History furosemide 40 mg PO DAILY 04/29/20 04/30/20 History isosorbide mononitrate 60 mg PO DAILY 04/29/20 04/30/20 History losartan 100 mg PO DAILY 04/29/20 04/30/20 History metronidazole 500 mg PO TID 04/29/20 04/30/20 History triamcinolone acetonide 0.1 applic TOPICAL PRN PRN 04/29/20 04/30/20 History Allergies Allergy/AdvReac Type Severity Reaction Status Date / Time No Known Allergies Allergy Verified 04/29/20 23:15 Results - Labs CBC & Chem 7: 05/03/20 04:37 05/03/20 04:37 Labs: Short CBC 05/03/20 Range/Units 04:37 WBC 37.0 H (4.5-10.0) K/mm3 Hgb 9.5 L (12.0-15.0) g/dL Hct 30.6 L (37.0-47.0) % Plt Count 191 (150-375) k/mm3 BMP 05/03/20 04:37 Sodium 137 Potassium 3.7 Chloride 111 H Carbon Dioxide 18 L BUN 70 H Creatinine 3.50 H Glucose 128 H Calcium 7.5 L Liver Function 05/03/20 Range/Units 04:37 Total Bilirubin 0.5 (0.2-1.3) mg/dL AST 143 H (14-36) U/L ALT 98 H (4-35) U/L Alkaline Phosphatase 162 H (38-126) U/L Albumin 2.2 L (3.5-5.1) g/dL Assessment and Plan - Additional Plan Leukocytosis with eosinophilia. Patient also has normocytic anemia. Since she is a 79-year-old obese female with history of hypertension arthritis and hyperlipidemia came into the hospital with worsening of shortness of breath. She was recently treated for UTI and colitis at [facility]. She complain of diarrhea but denies any fevers and chills. Chest x-ray showed pulmonary vascular congestion bilateral pulmonary infiltrate possibl
--- NOTE | 2020-05-03 16:44 | PM.IMPN ---
Progress Note: A&P Assessment and Plan (1) Acute hypoxemic respiratory failure: Code(s): J96.01 - Acute respiratory failure with hypoxia Status: Acute Assessment and Plan: Appears to be secondary to acute heart failure exacerbation with pulmonary edema on chest x-ray and elevated BNP. The patient does appear to have peripheral edema. We will continue IV Lasix therapy. Monitor eyes and nose. Check TSH reflex T4. Sodium prudent fluid restricted diet. Check echocardiogram in a.m.. CHF teaching. Supplemental oxygen as needed. Continuous pulse oximetry. Bronchodilators as needed. RT assess and treat. 05/03/20 16:44 04/30 patient is 79-year-old female with significant cardiac or pulmonary history presented emergency department with a complaint of shortness of breath lower extremity edema chest x-ray showed cardiomegaly, pulmonary vascular congestion, bilateral pulmonary infiltrates. Differential diagnosis for the bilateral infiltrates includes pulmonary edema, pneumonia, most likely patient symptoms are secondary to exacerbation of congestive heart failure etiology uncertain cardiac echo is pending, is being diuresed with IV Lasix b.i.d. will continue to monitor, also upon arrival patient white counts elevated to 36,000 concerning sepsis with elevated white count and pneumonia as well as UTI, patient is being treated with Rocephin and azithromycin will continue to monitor, also patient BUN and creatinine is elevated 52/3.10 pre renal secondary dehydration patient is being diurese, patient renal ultrasound is normal, patient may be 3rd spacing. will closely monitor patient kidney function if there is no improvement will consult wax pattern assembler further recommendation. There is a suspicion patient may be positive for COVID-19 being tested an isolated. 05/01 patient COVID test is negative and off isolation, today patient states feeling little better not as short of breath however patient urine output is poor a kidney function is not improving, will consult Nephrology for further recommendation, cardiac echo is pending White counts remain elevated urine and blood cultures are pending, most likely secondary to pneumonia patient is being treated with Rocephin azithromycin will continue to monitor, will have a PT OT evaluate the patient and further recommendation to follow. 05/02, today patient stats she is feeling better requiring 1L NC, chest does not any pneumonia, her urine does show white counts, but urine and blood culture are pending patient being treated with Rocephin and Zithromax, her white counts are improving but still quite elevated unable to attribute to source of infection, will consult environmental studies program director for recommendation, patient creatinine is remain elevated seen by Dr. Elkins and work up is in progress patient being diuresed will continue to monitor. patient to participate in PT/OT and further recommendation. 05/03 patient has been hypotensive on 05/02 patient BP was in low 80s patient was given total of 500cc bolus, today holding patient's isorbide, losartan, and reduce her atenolol to 25mg BID from 50mg BID, today her BP is little better however HR is elevated in 100s, I spoke with her daughter and answer all her questions, patient will elevated white counts and spoke with Dr. Stanton environmental studies program director, he will consult her further recommendations to follow. Patient will be seen Dr. Elkins her wax pattern assembler will follow up. (2) Congestive heart failure: Qualifiers: Heart failure chronicity: acute Heart failure type: unspecified Qualified Code(s): I50.9 - Heart failure, unspecified Code(s): I50.9 - Heart failure, unspecified Status: Acute Assessment and Plan: Rule out acute congestive heart failure exacerbation with evidence of fluid overload. Monitor fluid status closely. Continue IV diuretics. Echocardiogram is pending. (3) Urinary tract infection: Qualifiers: Hematuria prese
[2020-05-03] MEDS: atenoloL 25 MG TABLET PO (20:09)
--- NOTE | 2020-05-03 22:19 | PM.PNNEP ---
Progress Note: A&P Assessment and Plan (1) Acute renal failure: Qualifiers: Acute renal failure type: unspecified Qualified Code(s): N17.9 - Acute kidney failure, unspecified Code(s): N17.9 - Acute kidney failure, unspecified Status: Acute Assessment and Plan: Lizbeth has an elevated creatinine. Her renal ultrasound shows normal kidneys. Urinalysis shows protein plus some white cells. Urine culture is negative urine protein is around 200milligrams/gram of creatinine urine electrolytes look pre renal. creatinine is a bit high. The patient may be a bit dehydrated and also the blood pressure may be leading to the pre renal state. She could have a component of ATN from her pneumonia. She is on antibiotics for this. (2) Metabolic acidosis: Code(s): E87.2 - Acidosis Status: Acute Assessment and Plan: CO2 is down a bit. start bicarb. (3) Acute hypoxemic respiratory failure: Code(s): J96.01 - Acute respiratory failure with hypoxia Status: Acute Assessment and Plan: The patient has volume overload on her chest x-ray. She is getting diuretics for this and feels better. Her echocardiogram does not look all that bad. So it does not look like she has primary congestive heart failure. holding diuretics. (4) Urinary tract infection: Qualifiers: Urinary tract infection type: site unspecified Hematuria presence: without hematuria Qualified Code(s): N39.0 - Urinary tract infection, site not specified Code(s): N39.0 - Urinary tract infection, site not specified Status: Acute Assessment and Plan: Her urinalysis showed a few red cells and a few white cells. Culture is negative. She was on cefdinir on admission which would explain the negative culture. (5) Essential hypertension: Code(s): I10 - Essential (primary) hypertension Status: Chronic Assessment and Plan: Blood pressure is doing pretty well, a bit low last night. Back off on antihypertensives. (6) Hyperlipidemia: Qualifiers: Hyperlipidemia type: unspecified Qualified Code(s): E78.5 - Hyperlipidemia, unspecified Code(s): E78.5 - Hyperlipidemia, unspecified Status: Chronic Assessment and Plan: She is on atorvastatin. Subjective Date/time seen: 05/03/20 22:19 Interval history: Lizbeth is feeling about the same. no more sob. no cp edema absent. Exam Narrative: Exam Narrative: WDWN in NAD skin no rash head ncat lungs clear Bilaterally cor reg no rub abd BS+ nontender and soft ext no edema. Objective Data Vital Signs Vital Signs: Vital Signs - 24 hr 05/02/20 23:25 05/03/20 00:00 05/03/20 00:30 Temperature 36.7 C Pulse Rate 121 H 116 H 109 H Respiratory Rate 20 Blood Pressure 78/53 L 97/54 L Pulse Oximetry 91 05/03/20 01:46 05/03/20 01:57 05/03/20 02:00 Temperature Pulse Rate 97 110 H 117 H Respiratory Rate 22 H 20 Blood Pressure Pulse Oximetry 05/03/20 04:00 05/03/20 06:00 05/03/20 06:13 Temperature 36.4 C L Pulse Rate 121 H 111 H Respiratory Rate 22 H Blood Pressure 85/43 L 86/48 L 86/48 L Pulse Oximetry 91 05/03/20 07:40 05/03/20 08:00 05/03/20 08:29 Temperature 36.3 C L Pulse Rate 113 H 106 H 115 H Respiratory Rate 22 H 20 Blood Pressure 88/48 L Pulse Oximetry 99 90 05/03/20 08:33 05/03/20 08:40 05/03/20 10:00 Temperature Pulse Rate 110 H 111 H Respiratory Rate 20 Blood Pressure Pulse Oximetry 88 L 05/03/20 11:51 05/03/20 12:00 05/03/20 12:38 Temperature 36.3 C L Pulse Rate 107 H 106 H Respiratory Rate 22 H Blood Pressure 72/45 L 106/58 L Pulse Oximetry 90 96 05/03/20 13:24 05/03/20 13:39 05/03/20 13:44 Temperature Pulse Rate 109 H 103 H 111 H Respiratory Rate 20 20 Blood Pressure Pulse Oximetry 05/03/20 15:46 05/03/20 16:00 05/03/20 17:13 [place]
[2020-05-04] VITALS (13 sets, daily range): BP systolic 78–102; BP diastolic 44–55; PULSE 87–135; RESP 18–24; TEMP 36.1–36.4; O2SAT 89–99
[2020-05-04] MEDS: IPRATROPIUM BR 0.02% INH SOLN 0.5 MG/2.5 ML VIAL INHALATION ×2 (02:30→08:06)
[2020-05-04] MEDS: ALBUTEROL SULFATE NEB 2.5 MG/0.5 ML INH 5 MG INHALATION ×2 (02:30→08:06)
[2020-05-04] MEDS: SODIUM CHLORIDE 0.9% IV 1,000 ML 100 ML IV CONT (03:26)
[2020-05-04] MEDS: allopurinoL 100 MG TABLET PO (09:27)
[2020-05-04] MEDS: ATORVASTATIN 40 MG TABLET PO (09:27)
[2020-05-04] MEDS: ENOXAPARIN 30 MG/0.3 ML SYRINGE SUB-Q (09:29)
[2020-05-04] MEDS: SODIUM BICARBONATE TAB 325 MG TABLET PO (09:45)
[2020-05-04] MEDS: atenoloL 50 MG TABLET PO (09:45)
[2020-05-04] MEDS: TRIAMCINOLONE ACET 0.1% OINT 15 GM TUBE 0.1 APPLIC TOPICAL (09:51)
--- NOTE | 2020-05-04 10:16 | PM.PNNEP ---
Progress Note: A&P Assessment and Plan (1) Acute renal failure: Qualifiers: Acute renal failure type: unspecified Qualified Code(s): N17.9 - Acute kidney failure, unspecified Code(s): N17.9 - Acute kidney failure, unspecified Status: Acute Assessment and Plan: Lizbeth has an elevated creatinine. Her renal ultrasound shows normal kidneys. Urinalysis shows protein plus some white cells. Urine culture is negative urine protein is around 200milligrams/gram of creatinine urine electrolytes look pre renal. creatinine is higher now. Today's labs are pending. They were unable to get the blood draw. There are trying to get from the IV now. They will try to get the waiter/waitress tourist class to has an ultrasound machine to see if they can find a site. The patient does not look dry anymore. I Think we can stop the IV fluids. The patient has itching and she had eosinophilia couple of days ago. 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 Consider steroids if safe? I talked with Dr. Crowley who will change her antibiotics. She is also on allopurinol but she has been on this for a long time. I do not think [facility] would be [facility]unders in this lady since she has such significant kidney disease. (2) Metabolic acidosis: Code(s): E87.2 - Acidosis Status: Acute Assessment and Plan: CO2 is down a bit. On bicarb. (3) Acute hypoxemic respiratory failure: Code(s): J96.01 - Acute respiratory failure with hypoxia Status: Acute Assessment and Plan: The patient has volume overload on her chest x-ray. She is getting diuretics for this and feels better. Her echocardiogram does not look all that bad. So it does not look like she has primary congestive heart failure. Back on diuretics. Furosemide 20 mg a day. (4) Urinary tract infection: Qualifiers: Urinary tract infection type: site unspecified Hematuria presence: without hematuria Qualified Code(s): N39.0 - Urinary tract infection, site not specified Code(s): N39.0 - Urinary tract infection, site not specified Status: Acute Assessment and Plan: Her urinalysis showed a few red cells and a few white cells. Culture is negative. She was on cefdinir on admission which would explain the negative culture. Now changing to Levaquin. (5) Essential hypertension: Code(s): I10 - Essential (primary) hypertension Status: Chronic Assessment and Plan: Blood pressure is doing pretty well, a bit low last night. bp better now. (6) Hyperlipidemia: Qualifiers: Hyperlipidemia type: unspecified Qualified Code(s): E78.5 - Hyperlipidemia, unspecified Code(s): E78.5 - Hyperlipidemia, unspecified Status: Chronic Assessment and Plan: She is on atorvastatin. Subjective Date/time seen: 05/04/20 10:16 Interval history: Lizbeth is feeling blah today. no more sob. no cp edema absent. The patient is itching everywhere she says. Exam Narrative: Exam Narrative: WDWN in NAD skin no rash head ncat lungs clear Bilaterally cor reg no rub or gallop. abd BS+ nontender and soft ext no edema. Objective Data Vital Signs Vital Signs: Vital Signs - 24 hr 05/03/20 11:51 05/03/20 12:00 05/03/20 12:38 Temperature 36.3 C L Pulse Rate 107 H 106 H Respiratory Rate 22 H Blood Pressure 72/45 L 106/58 L Pulse Oximetry 90 96 05/03/20 13:24 05/03/20 13:39 05/03/20 13:44 Temperature Pulse Rate 109 H 103 H 111 H Respiratory Rate 20 20 Blood Pressure Pulse Oximetry 05/03/20 15:46 05/03/20 16:00 05/03/20 17:13 Temperature 36.3 C L Pulse Rate 112 H 112 H Respiratory Rate 20 Blood Pressure 97/51 L Pulse Oximetry 90 93 05/03/20 20:00 05/03/20 20:09 05/03/20 20:20 Temperature 35.7 C L Pulse Rate 102 H 107 H 101 H Respiratory Rate 20 20 Blood Pressure 100/39 L Pulse Oximetry 93 05/03/20
[2020-05-04 10:54] LABS: Hematocrit 35.4 % (37.0-47.0); Hemoglobin 10.8 g/dL (12.0-15.0); Mean Corpuscular HGB Conc 30.5 g/dl (32-36); Mean Corpuscular Hemoglobin 29.3 pg (26-34); Mean Corpuscular Volume 95.9 fl (80-100); Mean Platelet Volume 11.5 fl (7.4-10.4); Platelet Count Result 209 k/mm3 (150-375); Red Blood Count 3.69 M/mm3 (4.2-5.4); Red Cell Distribution Width 19.2 % (11.5-14.5); White Blood Count 47.2 K/mm3 (4.5-10.0)
--- NOTE | 2020-05-04 11:02 | PCPTNOTE ---
Attempted therapy session at 10:55, Pt refused therapy at this time. Reminded Pt the importance of therapy and getting up to help with healing. Also informed Pt her physician wants her to work with therapy to improve in functional mobility and strength. Pt stated You can tell them I said no. I just can't do it today. Will attempt again.
[2020-05-04 11:25] LABS: Alanine Aminotransferase 95 U/L (4-35); Albumin Level 2.4 g/dL (3.5-5.1); Alkaline Phosphatase 243 U/L (38-126); Anion Gap 11 mmol/L (8-16); Aspartate Amino Transferase 114 U/L (14-36); Bilirubin,Total 0.6 mg/dL (0.2-1.3); Blood Urea Nitrogen 75 mg/dL (7-17); Carbon Dioxide 15 mmol/L (22-30); Chloride 112 mmol/L (98-107); Estimated CRCL calculation 13 ml/min; Estimated Glomerular Filt Rate 11; Glucose 94 mg/dL (65-105); Phosphorus 4.4 mg/dL (2.5-4.5); Potassium 4.7 mmol/L (3.4-5.0); Sodium 138 mmol/L (137-145)
[2020-05-04 12:38] LABS: Band Neutrophils Percent 1 % (0-6); Eosinophils Absolute Manual 13.68 K/mm3 (0.02-0.5); Eosinophils Percent Manual 29 % (0-4); Lymphocytes Absolute Manual 7.08 K/mm3 (1.1-4.5); Monocytes Absolute Manual 0.94 K/mm3 (0.1-0.90); Monocytes Percent Manual 2 % (3-9); Neutrophils Absolute Manual 25.48 K/mm3 (1.7-7.2); Neutrophils Percent Manual 53 % (46-73); Nucleated Red Blood Cells 5 %; Platelet Estimate Adequate (Adequate); Total Cells Counted 100
--- NOTE | 2020-05-04 12:38 | PCOTNOTE ---
Code Blue called x2 this date. Hold therapy at this time. Check with physician to obtain hold or discharge orders.
[2020-05-04 12:39] LABS: Ovalocytes 1+ (NORMAL); Tear Drop Cells 1+ (NORMAL)
[2020-05-04 12:40] LABS: Anisocytosis 2+ (NORMAL); Crenated RBC 1+ (NORMAL); Helmet Cells 1+ (NORMAL)
[2020-05-04 12:41] LABS: Smudge Cells MODERATE
[2020-05-04 12:51] LABS: Glucose Point of Care 63 (65-105)
--- NOTE | 2020-05-04 13:03 | PDCODEBLUE ---
Code Blue Note Code Blue Note Time Arrived at Code Blue: Asystole Initial Rhythm on Arrival: Asystole Airway Management: Initiated bagging pt on arrival Chest Compressions: In process on arrival to bedside Result of Code Blue: Pt Cardiac Rhythm Post Code: Asystole Code Blue Summary: Code yair was called, according the bedside RN patient was morning, and went unresponsive, usually bradycardic but went into asystole. Code was conducted per ACLS protocol. Patient did receive couple doses of epinephrine, bicarb, dextrose, calcium. An intraosseous line was placed by the ER physician Dr. Diggs, as patient had only 1 peripheral IV access. Started the CPR at 1155 with return of spontaneous circulation with sinus tachycardia at 1225. Patient was intubated, and bag-mask ventilation was initiated. Patient went into PEA, at 12:33 p.m, again CPR was initiated per ACLS protocol, patient did receive epinephrine and bicarb. At this time patient was already intubated and bag-mask ventilation was in process. Discussed with patient's daughter Nieves, I did let her know that the patient has had a cardiac arrest for almost 30 minutes before and 9 minutes, the 2nd time. She was okay with stopping the code. Code was called off, time of was 1242.
--- NOTE | 2020-05-04 13:14 | WPDPROCEDUR ---
Procedures Intubation Intubation Date: 05/04/20 Intubation Time: 12:28 A pre-procedural Time-Out was completed immediately before starting the procedure and confirmed: Patient Identification, Site, Procedure, Patient Position and the Availability of Requisite Equipment: Yes Sedative: none Laryngoscope: fiber optic video scope Assist device used: fiber optic device ET tube size: 7.5 Tube secured depth (cm): 23 Tube placement confirmation: visualized tube passing through cords, equal breath sounds bilaterally and no breath sounds over epigastrium Patient tolerated procedure: well Intubation complications: none
--- NOTE | 2020-05-04 13:39 | PC.NURSE ---
Went in to patient's room at 11:55 to re-check low blood pressure and administer antibiotics. Patient found unresponsive and did not respond to sternal rub. Cold blue called.
--- NOTE | 2020-05-04 14:59 | PM.DDS ---
Discharge Sum: Prov Provider Primary care physician: Seth Puente, Admitting provider: Ciro Sharp MD Consults: 05/01/20 13:10 Consult to Physician Routine Comment: Consulting Provider: Tal Elkins will call clerk/ group to consult: Dr. Elkins Reason for consultation: CKD, CHF, poor urine out put Has provider been notified: Yes 05/03/20 16:12 Consult to Physician Routine Comment: SPOKE WITH DR. STANTON Consulting Provider: Phuc Stanton will call clerk/ group to consult: Dr. Stanton Reason for consultation: elevated white counts Has provider been notified: Yes Discharge Sum: Diag Contributing Factors (1) Acute hypoxemic respiratory failure: (2) Congestive heart failure: (3) Urinary tract infection: (4) Sepsis: (5) Transaminitis: (6) Suspected 2019 novel coronavirus infection: (7) Acute renal failure: (8) Metabolic acidosis: (9) Essential hypertension: (10) Hyperlipidemia: (11) Colitis: Discharge Sum: Summary Date and Time Date of admission: 04/29/20 23:24 Date of : 05/04/20 Time of : 12:42 Summary Details: (1) Acute hypoxemic respiratory failure: Code(s): J96.01 - Acute respiratory failure with hypoxia Status: Acute Assessment and Plan: Appears to be secondary to acute heart failure exacerbation with pulmonary edema on chest x-ray and elevated BNP. The patient does appear to have peripheral edema. We will continue IV Lasix therapy. Monitor eyes and nose. Check TSH reflex T4. Sodium prudent fluid restricted diet. Check echocardiogram in a.m.. CHF teaching. Supplemental oxygen as needed. Continuous pulse oximetry. Bronchodilators as needed. RT assess and treat. 05/03/20 16:44 04/30 patient is 79-year-old female with significant cardiac or pulmonary history presented emergency department with a complaint of shortness of breath lower extremity edema chest x-ray showed cardiomegaly, pulmonary vascular congestion, bilateral pulmonary infiltrates. Differential diagnosis for the bilateral infiltrates includes pulmonary edema, pneumonia, most likely patient symptoms are secondary to exacerbation of congestive heart failure etiology uncertain cardiac echo is pending, is being diuresed with IV Lasix b.i.d. will continue to monitor, also upon arrival patient white counts elevated to 36,000 concerning sepsis with elevated white count and pneumonia as well as UTI, patient is being treated with Rocephin and azithromycin will continue to monitor, also patient BUN and creatinine is elevated 52/3.10 pre renal secondary dehydration patient is being diurese, patient renal ultrasound is normal, patient may be 3rd spacing. will closely monitor patient kidney function if there is no improvement will consult pump house engineer further recommendation. There is a suspicion patient may be positive for COVID-19 being tested an isolated. 05/01 patient COVID test is negative and off isolation, today patient states feeling little better not as short of breath however patient urine output is poor a kidney function is not improving, will consult Nephrology for further recommendation, cardiac echo is pending White counts remain elevated urine and blood cultures are pending, most likely secondary to pneumonia patient is being treated with Rocephin azithromycin will continue to monitor, will have a PT OT evaluate the patient and further recommendation to follow. 05/02, today patient stats she is feeling better requiring 1L NC, chest does not any pneumonia, her urine does show white counts, but urine and blood culture are pending patient being treated with Rocephin and Zithromax, her white counts are improving but still quite elevated unable to attribute to source of infection, will consult director of archives for recommendation, patient creatinine is remain elevated seen by Dr. Elkins and work up is in progress patient being diuresed will continue to monitor. patient to
--- NOTE | 2020-05-04 18:48 | ED.PROCEDURE ---
Procedures IO Right Tibia: Time out performed: No Anesthetic used: none IO instrument used to penetrate the cortex: battery powered IO drill Post Procedure: aspirated marrow, easily flushes and secured in place Patient tolerated procedure: well Complications: none
== END 2020-05-04 12:42 | disposition expired | DRG 871 ==
LOC: ANHED 22:56 → ANHIMU 04-30 02:20 → ANHICU 05-08 14:41 → ANHIMU 05-08 14:41
PROVIDERS: Internal Medicine Nephrology; Admitting Provider Family Medicine; Emergency Provider Emergency Medicine; PCP Internal Medicine; Referring Provider Internal Medicine Hematology & Oncology; Visit Provider Family Medicine
DX: A41.9 Sepsis, unspecified organism (principal); J18.9 Pneumonia, unspecified organism; J96.01 Acute respiratory failure with hypoxia; N17.0 Acute kidney failure with tubular necrosis; N39.0 Urinary tract infection, site not specified; E87.2 Acidosis; R65.20 Severe sepsis without septic shock; I10 Essential (primary) hypertension; E78.5 Hyperlipidemia, unspecified; Z20.822 Contact with and (suspected) exposure to COVID-19; K52.9 Noninfective gastroenteritis and colitis, unspecified
CPT/HCPCS: 31500; 36415; 36600; 51701; 71045; 76775; 80048; 80053; 80069; 81001; 82550; 82570; 82805; 82948; 83520; 83605; 83735; 83880; 84100; 84156; 84300; 84443; 84484; 85025; 85027; 85610; 85730; 85999; 87040; 87086; 92950; 93005; 93306; 94640; 96374; 97110; 97161; 97165; 97530; 99285; A9270; C9803; J0171; J0456; J0696; J1650; J1940; J7030; J7040; J7050; U0003; U0005